=== PATIENT | male | born 1970 | race Caucasian/White ===

== ENCOUNTER 2020-09-13 05:45 | Observation (INO) | payer BC, OTHER ==
[~2020-09-13] VITALS: Ht 188 cm; Wt 149.0 kg
[2020-09-13] MEDS ORDERED: CHLORHEXIDINE 15 ML UDC PO ONE (06:30)
[2020-09-13] MEDS ORDERED: LACTATED RINGERS 1,000 ML IV SCH (06:30)
[2020-09-13 06:32] VITALS: BP 185/87
[2020-09-13] MEDS ORDERED: CHLORHEXIDINE 15 ML UDC ONE (06:40)
[2020-09-13] MEDS ORDERED: FURO80TA3 PO (06:47)
[2020-09-13] MEDS ORDERED: AMLO-211 PO (06:47)
[2020-09-13] MEDS ORDERED: MULT-257 PO (06:47)
[2020-09-13] MEDS ORDERED: CALC0.25 PO (06:47)
[2020-09-13] MEDS ORDERED: BUPIVACAINE/PF 0.5% ONE (07:02)
[2020-09-13] MEDS ORDERED: PAPAVERINE 30 MG/ML, 2ML ONE (07:02)
[2020-09-13] MEDS ORDERED: HEPARIN 1,000 UNITS/ML, 10ML ONE (07:02)
[2020-09-13] MEDS ORDERED: EPINEPHRINE 1 MG/ML, 1ML ONE (07:02)
[2020-09-13] MEDS ORDERED: THROMBIN 20,000 UNIT VIAL TP ONE (07:02)
[2020-09-13] MEDS ORDERED: PROTAMINE SULFATE 10 MG/ML, 25ML ONE (07:03)
[2020-09-13] MEDS ORDERED: CHOL10003 PO (07:05)
[2020-09-13] MEDS ORDERED: LEVO100T5 PO (07:05)
[2020-09-13] MEDS ORDERED: SEMA1PEN SQ-INSULIN (07:05)
[2020-09-13] MEDS ORDERED: ASPI81TA45 PO (07:05)
[2020-09-13] MEDS ORDERED: LISI40TA9 PO (07:05)
[2020-09-13] MEDS ORDERED: INSU100V35 SQ-INSULIN (07:05)
[2020-09-13] MEDS ORDERED: METO-95 PO (07:05)
[2020-09-13] MEDS ORDERED: ATOR40TA78 PO (07:05)
[2020-09-13 07:12] LABS: BASOPHILS % (AUTO) 1 % (0-1); EOSINOPHILS % (AUTO) 3 % (1-7); LYMPHOCYTES % (AUTO) 22 % (22-44); MEAN CORPUSCULAR HEMOGLOBIN 29.3 pg (27.5-34.5); MEAN CORPUSCULAR HGB CONC 34.3 g/dL (33.2-36.2); MEAN PLATELET VOLUME 8.5 fL (7.4-10.4); MONOCYTES % (AUTO) 7 % (2-9); NEUTROPHILS % (AUTO) 67 % (42-75); PLATELET COUNT 160 x10^3/uL (130-400); RED BLOOD COUNT 3.41 x10^6/uL (4.38-5.82)
[2020-09-13 07:15] LABS: MD NO
[2020-09-13 07:24] LABS: ALANINE AMINOTRANSFERASE 16 U/L (12-78); ALBUMIN 2.4 g/dL (3.4-5.0); ANION GAP 9 mmol/L (5-15); CALCIUM 7.7 mg/dL (8.5-10.1); CHLORIDE 103 mmol/L (98-107); CREATININE 6.79 mg/dL (0.7-1.3)
[2020-09-13 07:25] LABS: INTERNATIONAL NORMALIZED RATIO 1.02 (0.93-1.1); PROTHROMBIN TIME 10.9 Seconds (9.6-11.5)
[2020-09-13 07:26] LABS: ALKALINE PHOSPHATASE 101 U/L (45-117); BILIRUBIN,TOTAL 0.4 mg/dL (0.2-1.0)
[2020-09-13] MEDS ORDERED: MIDAZOLAM 1 MG/ML, 2ML ONE (07:28)
[2020-09-13] MEDS ORDERED: FENTANYL PF 250 MCG/5ML ONE (07:28)
[2020-09-13] MEDS ORDERED: SODIUM CHLORIDE 0.9% 1,000 ML IV SCH (07:30)
[2020-09-13] MEDS ORDERED: HEPARIN 1,000 UNITS/ML, 10ML IV ONE (07:56)
[2020-09-13] MEDS ORDERED: BUPIVACAINE/PF-EPI 0.5% 1:200K INFIL ONE (07:56)
[2020-09-13] MEDS ORDERED: PROMETHAZINE 25 MG SUPP PR PRN (08:00)
[2020-09-13] MEDS ORDERED: PROMETHAZINE 25 MG/ML, 1ML IVPush PRN (08:00)
[2020-09-13] MEDS ORDERED: ONDANSETRON 2MG/ML, 2ML IVPush PRN (08:00)
[2020-09-13] MEDS ORDERED: hydrALAzine 20 MG/ML, 1ML IV PRN (08:00)
[2020-09-13] MEDS ORDERED: OXYcodone 5 MG/5 ML ORAL.SOL UDC PO PRN (08:00)
[2020-09-13] MEDS ORDERED: LABETALOL 5MG/ML, 20ML IV PRN (08:00)
[2020-09-13] MEDS ORDERED: FENTANYL PF 100 MCG/2ML IV PRN (08:00)
[2020-09-13] MEDS ORDERED: HYDROmorphone 1 MG/ML, 1ML INJ IVPush PRN (08:00)
[2020-09-13] MEDS ORDERED: ACETAMINOPHEN 325 MG TABLET PO PRN (08:00)
[2020-09-13] MEDS ORDERED: ONDANSETRON 2MG/ML, 2ML ONE (09:25)
[2020-09-13] MEDS ORDERED: NEOSTIGMINE 1 MG/ML, 10ML ONE (09:25)
[2020-09-13] MEDS ORDERED: SUCCINYLCHOLINE 20 MG/ML, 10ML ONE (09:25)
[2020-09-13] MEDS ORDERED: GLYCOPYRROLATE 0.2MG/1ML, 5ML ONE (09:25)
[2020-09-13] MEDS ORDERED: SUGAMMADEX 200 MG/2 ML IVPush ONE ×2 (09:25)
[2020-09-13] MEDS ORDERED: CEFAZOLIN 1,000 MG ONE (09:25)
[2020-09-13] MEDS ORDERED: ROCURONIUM 10MG/ML,5ML ONE (09:25)
[2020-09-13] MEDS ORDERED: PROPOFOL 10 MG/ML, 20ML ONE (09:25)
[2020-09-13] MEDS ORDERED: HYDROcodone/APAP 5/325 TABLET PO PRN (09:30)
[2020-09-13] MEDS ORDERED: SODIUM CHLORIDE FLUSH 10ML SYR IVF SCH (21:00)
== END 2020-09-13 10:30 | disposition home or self-care (01) ==
LOC: OR 05:45 → ORIP 09:06
PROVIDERS: ADMIT Surgery; ATTEND Surgery
DX: I12.0 Hypertensive chronic kidney disease with stage 5 chronic kidney disease or end stage renal disease (principal); E11.22 Type 2 diabetes mellitus with diabetic chronic kidney disease; N18.6 End stage renal disease; Z20.822 Contact with and (suspected) exposure to COVID-19; E03.9 Hypothyroidism, unspecified; E66.9 Obesity, unspecified; Z79.899 Other long term (current) drug therapy; Z86.73 Personal history of transient ischemic attack (TIA), and cerebral infarction without residual deficits; Z99.2 Dependence on renal dialysis
CPT/HCPCS: 36821; 71045; 80053; 82962; 85025; 85610; 85730; 86850; 86900; 93005; G0378; J0171; J0690; J1644; J2250; J2405; J2704; J2710; J3010; J7030; J7120; S0020; U0003; U0005; J2720; J0330; J2440